=== PATIENT | female | born 1990 | race Hispanic/Latino ===

== ENCOUNTER 2023-07-12 10:46 | Emergency (ER) | payer OTHER, SELFPAY ==
--- NOTE | ~2023-07-12 | US_ITS ---
EXAMINATION: US pelvic complete w TV DATE: 07/12/2023 13:23 INDICATION: Vaginal bleeding and pelvic pain, recent miscarriage TECHNIQUE: Multiple transabdominal and endovaginal sonographic images of the pelvis were obtained. COMPARISON: None. FINDINGS: The uterus measures 10.0 x 4.9 x 6.6 cm. The endometrial complex measures 2.1 cm. There is a 1.4 x 0.8 x 1.2 cm hyperechoic focus in the myometrium adjacent to the endometrium. The right ovar y measures 3.3 x 2.6 x 2.6 cm. The left ovary measures 2.6 x 1.8 x 2.1 cm. There is normal vascular f low in the ovaries. There is a small amount of free fluid in the pelvis. IMPRESSION: 1. Small hyperechoic focus in the myometrium adjacent to the endometrium which could reflect a small focal hemorrhage related to recent miscarriage. 2. Mild endometrial thickening. 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
[2023-07-12 10:51] VITALS: PULSE 80; RESP 16; TEMP 36.4; O2SAT 100
[2023-07-12 11:36] LABS: Basophils Percent Auto 0.4 % (0.2-1.2); Eosinophils Percent Auto 0.4 % (0-4.4); Hematocrit 31.7 % (37.0-47.0); Hemoglobin 9.9 g/dL (12.0-15.0); Immature Granulocyte Absolute 0.03 K/mm3 (0.00-0.031); Immature Granulocyte Percent A 0.4 % (0-0.5); Lymphocytes Absolute Auto 2.76 K/mm3 (0.9-3.2); Lymphocytes Percent Auto 40.9 % (18.3-44.2); Mean Corpuscular HGB Conc 31.2 g/dl (32-36); Mean Corpuscular Hemoglobin 26.7 pg (26-34); Mean Corpuscular Volume 85.4 fl (80-100); Mean Platelet Volume 8.6 fl (7.4-10.4); Monocytes Absolute Auto 0.5 K/mm3 (0.1-0.6); Monocytes Percent Auto 6.7 % (2.6-8.5); Neutrophils Absolute Auto 3.5 K/mm3 (1.3-6.7); Neutrophils Percent Auto 51.2 % (45.5-73.1); Platelet Count Result 287 k/mm3 (150-375); Red Blood Count 3.71 M/mm3 (4.2-5.4); Red Cell Distribution Width 12.9 % (11.5-14.5); White Blood Count 6.8 K/mm3 (4.5-10.0)
[2023-07-12 11:40] LABS: Appearance Urine Clear (Clear); Bacteria Urine None Seen /hpf; Bilirubin Urine Negative (Negative); Blood Urine 2+ (Negative); Color Urine Yellow (Yellow); Glucose Urine UA Negative (Negative); Ketones Urine Negative (Negative); Leukocyte Esterase Ur Negative LEU/UL (Negative); Nitrate Urine Negative (Negative); Non Pathogenic Casts 0-2; Protein Urine Negative (Negative); RBC Urine 0-2 /hpf (0-2); Specific Grav Ur 1.005 (1.001-1.035); Squamous Epithelial Cell Urine Occasional /hpf (Few); Urobilinogen Urine 0.2 mg/dL (<2.0); WBC Urine 0-5 /hpf
[2023-07-12 11:46] LABS: Add Urine Microscopic? YES
[2023-07-12 11:47] LABS: INR 1.1; Prothrombin Time 14.5 Seconds (11.1-14.7)
[2023-07-12 11:48] LABS: Alanine Aminotransferase 18 U/L (6-35); Albumin Level 4.4 g/dL (3.5-5.1); Alkaline Phosphatase 77 U/L (38-126); Anion Gap 8 mmol/L (8-16); Aspartate Amino Transferase 33 U/L (14-36); Bilirubin,Total 0.4 mg/dL (0.2-1.3); Blood Urea Nitrogen 11 mg/dL (7-17); Calcium 9.1 mg/dL (8.4-10.2); Carbon Dioxide 24 mmol/L (22-30); Chloride 107 mmol/L (98-107); Estimated CRCL calculation 67 ml/min; Estimated Glomerular Filt Rate > 60; Glucose 106 mg/dL (65-110); Partial Thromboplastin Time 31.5 SECONDS (22.3-36.8); Potassium 4.3 mmol/L (3.4-5.0); Sodium 139 mmol/L (137-145)
--- NOTE | 2023-07-12 12:33 | PC.NURSE ---
Pt away at ultrasound at this time.
--- NOTE | 2023-07-12 14:43 | ED.GENADULT ---
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 Stated complaint: RECENT MISCARRIAGE, NEEDS EVAL Time Seen by Provider: 07/12/23 10:57 Related Data Allergies Allergy/AdvReac Type Severity Reaction Status Date / Time No Known Allergies Allergy Verified 07/12/23 10:55 Course Vital Signs Vital signs: Vital Signs Temperature 97.6 F 07/12/23 10:51 Pulse Rate 80 07/12/23 10:51 Respiratory Rate 16 07/12/23 10:51 Pulse Oximetry 100 07/12/23 10:51 Temperature 97.6 F 07/12/23 10:51 Pulse Rate 80 07/12/23 10:51 Respiratory Rate 16 07/12/23 10:51 Pulse Oximetry 100 07/12/23 10:51 Medical Decision Making Vital Signs Vital Signs: Vital Signs Temperature 97.6 F 07/12/23 10:51 Pulse Rate 80 07/12/23 10:51 Respiratory Rate 16 07/12/23 10:51 Pulse Oximetry 100 07/12/23 10:51 Temperature 97.6 F 07/12/23 10:51 Pulse Rate 80 07/12/23 10:51 Respiratory Rate 16 07/12/23 10:51 Pulse Oximetry 100 07/12/23 10:51 Lab Data 07/12/23 11:25 07/12/23 11:25 Labs: Lab Results 07/12/23 07/12/23 Range/Units 11:25 11:27 WBC 6.8 (4.5-10.0) K/mm3 RBC 3.71 L (4.2-5.4) M/mm3 Hgb 9.9 L (12.0-15.0) g/dL Hct 31.7 L (37.0-47.0) % MCV 85.4 (80-100) fl MCH 26.7 (26-34) pg MCHC 31.2 L (32-36) g/dl RDW 12.9 (11.5-14.5) % Plt Count 287 (150-375) k/mm3 MPV 8.6 (7.4-10.4) fl Immature Gran % (Auto) 0.4 (0-0.5) % Neut % (Auto) 51.2 (45.5-73.1) % Lymph % (Auto) 40.9 (18.3-44.2) % [place] % (Auto) 6.7 (2.6-8.5) % Eos % (Auto) 0.4 (0-4.4) % Baso % (Auto) 0.4 (0.2-1.2) % Lymph # (Auto) 2.76 (0.9-3.2) K/mm3 [place] # (Auto) 0.5 (0.1-0.6) K/mm3 Eos # (Auto) 0.0 (0-0.3) K/mm3 Baso # (Auto) 0.0 (0.0-0.1) K/mm3 Abs Immat Gran (auto) 0.03 (0.00-0.031) K/mm3 Absolute Neuts (auto) 3.5 (1.3-6.7) K/mm3 Absolute Nucleated RBC 0.0 (0.0-0.012) K/mm3 Nucleated RBC % 0.0 (0.0-0.2) % PT 14.5 (11.1-14.7) Seconds INR 1.1 APTT 31.5 (22.3-36.8) SECONDS Sodium 139 (137-145) mmol/L Potassium 4.3 (3.4-5.0) mmol/L Chloride 107 (98-107) mmol/L Carbon Dioxide 24 (22-30) mmol/L Anion Gap 8 (8-16) mmol/L BUN 11 (7-17) mg/dL Creatinine 1.00 (0.7-1.0) mg/dL Estim Creat Clear Calc 67 ml/min Estimated GFR > 60 (59 - ) Glucose 106 (65-110) mg/dL Calcium 9.1 (8.4-10.2) mg/dL Total Bilirubin 0.4 (0.2-1.3) mg/dL AST 33 (14-36) U/L ALT 18 (6-35) U/L Alkaline Phosphatase 77 (38-126) U/L Total Protein 8.0 (6.3-8.2) g/dL Albumin 4.4 (3.5-5.1) g/dL Urine Color Yellow (Yellow) Urine Appearance Clear (Clear) Urine pH 6.0 (5.0-9.0) Ur Specific [place]ona 1.005 (1.001-1.035) Urine Protein Negative (Negative) mg/dL Urine Glucose (UA) Negative (Negative) mg/dL Urine Ketones Negative (Negative) mg/dL Ur Blood (Man) 2+ H (Negative) Urine Nitrate Negative (Negative) Urine Bilirubin Negative (Negative) Urine Urobilinogen 0.2 (<2.0) mg/dL Leukocyte Esterase Rfl Negative (Negative) ADONAY/UL Urine RBC 0-2 (0-2) /hpf Urine WBC 0-5 /hpf Ur Squamous Epith Cells Occasional (Few) /hpf Urine Bacteria None seen /hpf Urine Casts 0-2 UCG Bedside Result Negative Reference Range: Negative Discharge Plan Discharge Clinical Impression: Retained products of conception Patient Disposition: Home, Self-Care Condition: Stable Additional Instructions: You have retained products of conception within the uterus. You need to follow-up with the OB listed below. He plans on scheduling you in clinic soon and also scheduling you for a dilation and curettage. Return to the ER if your bleeding through 1 pad an hour for 3 continuous hours, you have worsening abdominal pain, or you lose consciousness. Rusty
[2023-07-12 14:59] VITALS: BP 118/72; PULSE 85; RESP 18; TEMP 36.7; O2SAT 100
== END 2023-07-12 15:00 | disposition home or self-care (01) ==
PROVIDERS: Emergency Provider Emergency Medicine
DX: O03.4 Incomplete spontaneous abortion without complication (principal)
CPT/HCPCS: 36415; 76830; 76856; 80053; 81001; 81025; 85025; 85610; 85730; 99284

== ENCOUNTER 2023-07-18 11:57 | Outpatient (CLI) | payer OTHER, SELFPAY | END 2023-07-18 11:58 | disposition home or self-care (01) | LOC: ANHSURGERY 12:07 | PROVIDERS: Visit Provider Student in an Organized Health Care Education/Training Program | DX: O02.1 Missed abortion (principal); Z01.818 Encounter for other preprocedural examination | CPT/HCPCS: 36415; 86900; 86901 ==

== ENCOUNTER 2023-07-20 00:58 | Day surgery (SDC) | payer OTHER, SELFPAY ==
--- NOTE | 2023-07-18 12:04 | PC.NURSE ---
Report to the Outpatient Waiting Room, entrance under the green pavilion located off [facility], at time _1 PM_ on date _07/20/23_. Planned Procedure Time: _3 PM__. Time changes happen often and if your time is changed the preop area will call you the afternoon before. - You and your visitor will be asked to self-screen and do not enter if you have any COVID symptoms. - A mask is optional within the hospital at this time. Patients may have clear liquids (water, carbonated beverages, clear teas, apple juice) until 3 hours prior to surgery with a maximum of 20 ounces. - No food from midnight until time of surgery Take the following medications with a SIP of water the morning of surgery: NONE DO NOT STOP ANY OF YOUR OTHER PRESCRIPTION MEDICATIONS PRIOR TO SURGERY ?EXCEPT THE FOLLOWING Medications to discontinue per physician NONE Date to take last dose Please no make-up, nail french, hairspray, perfume, deodorant, or body powder the day of surgery. No jewelry (including any body piercings) or valuables the day of surgery, leave them at home. Please take a shower or bath the night before, or the morning of, surgery with an antibacterial soap. Wear comfortable, loose fitting clothing. - Jewelry must be removed prior to entering the operating room. Rings and piercings that are not removed may be cut off. - The hospital will not accept responsibility for valuables. - Please leave all valuables, including medications, at home the day of surgery. If you are going home after surgery, a licensed class b truck driver must drive you home. - NO public transportation without another adult if you receive anesthesia. - We recommend that an adult stay with you for 24 hours following discharge. - We also recommend that you do not drive, make important decision, drink alcoholic beverages, or take any drugs that were not prescribed by your health care provider for at least 24 hours after your discharge time. Follow any additional instructions given to you from your surgeon. If you or anyone in your household have experienced Covid symptoms in the past week, please notify your surgeon or the nurse liaison at the phone number below for possible testing. nstructions given to _PATIENT & _and asked if any additional questions and then verbalized understanding. Patient advised to call surgeon office or pre surgery nurse liaison [phone] if any additional questions.
[2023-07-18 12:25] VITALS: BP 108/70; PULSE 74; RESP 18; TEMP 36.4; O2SAT 100; BMI 33.2
--- NOTE | 2023-07-19 14:48 | WPDANESEPPF ---
Anes - Initial Pre Proc Eval Procedure: Operation Date: 07/20/23 14:00 Proposed Procedures p Suction Dilation and Curettage - Zac Mancuso MD Date/Time: 07/19/23 14:48 Surgeon: Zac Mancuso MD Pre Op Diagnosis: Missed ab Patient Data Age: 32 Gender: F Height: 1.52 m Weight: 77.2 kg Last Vital Signs Temp 36.4 C 07/18/23 12:25 Pulse 74 07/18/23 12:25 Resp 18 07/18/23 12:25 BP 108/70 07/18/23 12:25 Pulse Ox 100 07/18/23 12:25 O2 Del Method Room Air 07/18/23 12:25 Allergies Allergy/AdvReac Type Severity Reaction Status Date / Time No Known Allergies Allergy Verified 07/20/23 12:23 Home Medications Medication Instructions Recorded Confirmed Type No Home Medications 07/17/23 07/20/23 History Patient hx anesthesia problems: none Family hx anesthesia problems: none Results Review: All pre-operative results and documents have been reviewed as part of the pre-operative evaluation. [facility] Surgical History Surgical History (Updated 07/17/23 @ 08:57 by Oumou Rojas MA) H/O removal of cyst right armpit ~ 2018 Social History Social History (Updated 07/17/23 @ 08:58 by Oumou Rojas MA) Smoking status: Never smoker Second hand tobacco smoke exposure: No Alcohol intake: never Substance use: never Substance use type: does not use Do You Feel Safe in your Home?: Yes Current Housing: Decline to Answer Concerned About Future Housing: Decline to Answer Difficulty Paying Gas/Electric Bills: Decline to Answer Difficulty Paying for Meds: Decline to Answer Currently Unemployed: Decline to Answer Education: Decline to Answer Difficulty w/ Childcare or Family Care: Decline to Answer Living arrangements: with family Occupation/Education: unemployed Gender identity (if verbalized by the patient): Female Sexual Orientation (if Verbalized by the Patient): Straight or Heterosexual Spiritual care concerns: No Anes - Eval Final PreProcedure Day of Procedure 07/19/23 14:48 Patient weight: obese Heart: regular rate and rhythm Lungs: clear to auscultation Airway: Mallampati scale class II Neurological: alert and oriented Last oral intake: >/= 8 hours ASA classification: II Emergent: no Anesthetic plan: proceed Anesthesia type and monitoring: general GIVS and standard monitoring Results Review: All pre-operative results and documents have been reviewed as part of the pre-operative evaluation. Informed Consent: The patient's anesthetic plan and its attendant risks and benefits were discussed with the patient/family/POA. Questions were solicited and answers provided to the satisfaction of the patient/family/POA.
--- NOTE | 2023-07-20 07:57 | PM.IMHP ---
H&P: HPI History of Present Illness Date/Time: 07/20/23 07:57 Chief Complaint: incomplete Narrative: 32-year-old 035 who presents for dilation and curettage after incomplete ? Patient states she had a spontaneous 1 month ago.? Patient states she had heavy bleeding at that time.? Patient states she started having heavy pain and bleeding again.? Patient presented to the ER.? Patient had a pelvic ultrasound which showed an irregular and thickened endometrium and concern for possible retained products of conception.? Patient presents today for outpatient follow-up.? Patient states she is still having some pelvic pain.? Patient states her bleeding has decreased to spotting. Review of Systems Review of Systems: All systems reviewed & are unremarkable except as noted in HPI and below Cardiovascular: Cardiovascular: Denies chest pain, Denies leg edema, Denies palpitations, Denies dyspnea and Denies dyspnea on exertion Respiratory: Respiratory: Denies cough, Denies dyspnea and Denies dyspnea on exertion Gastrointestinal: Gastrointestinal: Denies abdominal pain, Denies constipation, Denies diarrhea, Denies nausea and Denies vomiting Genitourinary: Genitourinary: Denies hematuria, Denies urinary frequency, Denies dysuria, Denies pelvic pain, Denies urinary incontinence and Denies vaginal discharge Neurologic: Reports system reviewed and no additional complaints, except as documented Psychiatric: Psychiatric: Reports no additional psychiatric complaints Endocrine: Endocrine: Denies palpitations [facility] Surgical History Surgical History (Updated 07/17/23 @ 08:57 by Oumou Rojas MA) H/O removal of cyst right armpit ~ 2018 Social History Social History (Updated 07/17/23 @ 08:58 by Oumou Rojas MA) Smoking status: Never smoker Second hand tobacco smoke exposure: No Alcohol intake: never Substance use: never Substance use type: does not use Do You Feel Safe in your Home?: Yes Current Housing: Decline to Answer Concerned About Future Housing: Decline to Answer Difficulty Paying Gas/Electric Bills: Decline to Answer Difficulty Paying for Meds: Decline to Answer Currently Unemployed: Decline to Answer Education: Decline to Answer Difficulty w/ Childcare or Family Care: Decline to Answer Living arrangements: with family Occupation/Education: unemployed Gender identity (if verbalized by the patient): Female Sexual Orientation (if Verbalized by the Patient): Straight or Heterosexual Spiritual care concerns: No Meds Home Medications and Allergies Home Medications Medication Instructions Recorded Confirmed Type No Home Medications 07/17/23 07/18/23 History Allergies Allergy/AdvReac Type Severity Reaction Status Date / Time No Known Allergies Allergy Verified 07/18/23 12:25 Exam Const: General: no acute distress Eyes: EOM: EOMs intact bilaterally Neck: Neck: supple Thyroid: thyroid normal Chest: Breast/axilla inspection: normal inspection of the breasts Breast/axilla palpation: normal palpation of the breasts, normal palpation of the axillae and no axillary lymphadenopathy Resp: Effort & Inspection: normal respiratory effort Auscultation: clear to auscultation bilaterally Cardio: Rate: regular rate Rhythm: regular rhythm GI: Inspection: non-distended GI Palp: Yes Soft to palpation, No Tenderness to palpation present (GI) and No Guarding due to palpation present (GI) Auscultation: normal bowel sounds : General: No bladder normal to palpation External Female Exam: normal external appearance Speculum Exam - Vagina: normal vaginal discharge and No vaginal bleeding Speculum Exam - Cervix: nontender Bimanual exam- vagina & uterus: No bladder normal to palpation and No Cervical tenderness present OB/external & speculum: No vaginal bleeding Skin: General skin exam: normal color and no rashes or lesions noted Neuro: Cognition (Neur
[2023-07-20 12:17] VITALS: BP 103/56; PULSE 82; RESP 16; TEMP 36.4; O2SAT 100
[2023-07-20] MEDS: LACTATED RINGERS 1,000 ML 30 ML IV CONT (12:40)
--- NOTE | 2023-07-20 13:53 | WPDHPUPDATE1 ---
History and Physical Update Update Date/Time: 07/20/23 13:53 History and Physical has been reviewed, including an updated exam of the patient. There are NO changes in the patient's condition. Risks, benefits, and alternatives have been discussed and questions answered. Patient agrees to proceed with procedure.
[2023-07-20] MEDS: DOXYCYCLINE 100 MG/NS 100 ML 100 MG/100 ML BAG IVPB (14:16)
--- NOTE | 2023-07-20 14:39 | W.PM.PROC2 ---
Procedure Note - Detailed Date of Procedure 07/20/23 Pre-op Diagnosis incomplete abnormal uterine bleeding Post-op Diagnosis Same Procedure Performed Suction Dilation & curettage Surgeon Zac Mancuso MD Anesthesia General Indications incomplete on pelvic US Findings intrauterine products of conception Description of Procedure The patient was taken to the operating room after an incomplete had been noted on on transvaginal ultrasound. The risks, benefits and alternatives of the procedure were reviewed with the patient and informed consent was obtained. The patient was taken to the OR and anesthesia was noted to be adequate. The patient was placed in the dorsolithotomy position. The patient was prepped and draped in the usual sterile fashion. Sterile speculum was placed in the vagina and the cervix was grasped with a tenaculum. A paracervical block was performed with 1% lidocaine. The cervix was dilated further to allow for passage of a 8 mm suction curette. The 8 mm suction curette was gently advanced to the fundus, suction was activated, and the tip was rotated while being withdrawn to clear the uterus of products. This suction process was repeated 3 additional times due to the quantity of material in the uterus. The sharp curette was introduced and advanced to the fundus to remove any remaining products. The suction curette was reintroduced one final time to ensure all products had been removed. Both sharp and suction curetting was performed under direct bedside US. The tenaculum was removed. Good hemostasis was noted. Instrument, sponge, and sharp counts were correct. Patient tolerated the procedure well and was taken to the recovery room in stable condition. Estimated Blood Loss 10 Drains No Packing No Pathology Yes (products of conception ) Complications No immediate complications Condition Stable Disposition PACU [facility] Billing Surgery - Charge Forward: Surgery Billing
[2023-07-20 14:42] VITALS: BP 90/45; PULSE 70; RESP 14; O2SAT 100
[2023-07-20] MEDS: LIDOCAINE HCL 1% LOCAL INJ 20 ML VIAL 10 ML INFILTRATE (14:45)
[2023-07-20 15:10] VITALS: BP 101/64; PULSE 75; RESP 14; O2SAT 100
[2023-07-20] MEDS: oxyCODONE HCL (*CRX) 5 MG TAB IR PO (15:27)
[2023-07-20 15:40] VITALS: BP 99/57; PULSE 58; RESP 14
== END 2023-07-20 15:40 | disposition home or self-care (01) ==
PROVIDERS: Visit Provider Student in an Organized Health Care Education/Training Program
PROC: (CPT 59812; principal; 2023-07-20 14:00)
DX: O03.4 Incomplete spontaneous abortion without complication (principal)
CPT/HCPCS: 59812; 88305; A9270; J1100; J1170; J2250; J2405; J2704; J3010; J7120

== ENCOUNTER 2023-08-14 14:12 | Outpatient (CLI) | payer OTHER, SELFPAY ==
[2023-08-14 15:38] LABS: Beta HCG Quantitative < 2.39 mIU/ML
== END 2023-08-14 14:13 | disposition home or self-care (01) ==
LOC: ANHLAB 14:13
PROVIDERS: Visit Provider Student in an Organized Health Care Education/Training Program
DX: Z30.430 Encounter for insertion of intrauterine contraceptive device (principal)
CPT/HCPCS: 36415; 84702